=== PATIENT | male | born 1975 | race African-American/Black ===

== ENCOUNTER 2017-01-02 12:31 | Inpatient (IN) | payer OTHER ==
--- NOTE | 2017-01-02 13:09 | PDOC ---
History of Present Illness - History of Present Illness Initial Comments: 01/02/17 13:38 Patient is a 41 year old male with no significant medical hx who is presenting to the ED by Dr. Ayala for rule out appendicitis. The patient has been complaining of crampy RLQ pain for the past week. His pain is intermittent, non- radiating, and rated 2/10 in severity by the patient. He notes that his pain worsens when he gets up and bends over. The patient also endorses several episodes of diarrhea per day for the past three days. Denies fever, chills, nausea, vomiting, chest pain, diaphoresis, shortness of breath, dysuria or any other symptoms. Denies past surgeries, alcohol use, tobacco use, drug use, allergies, or any past medical hx. <Luz Capellan - Last Filed: 01/02/17 18:20> - General History Source: Patient Exam Limitations: No Limitations <Alejandra Pandey - Last Filed: 01/02/17 19:06> - General Chief Complaint: Pain, Acute Stated Complaint: ABD PAIN (REFERRED) Time Seen by Provider: 01/02/17 13:08 Past History <Luz Capellan - Last Filed: 01/02/17 18:20> - Past Medical History Other medical history: PATIENT DENIES MEDICAL HX - Psycho/Social/Smoking Cessation Hx Suicidal Ideation: No Smoking History: Former smoker Have you smoked in the past 12 months: No Information on smoking cessation initiated: No Hx Alcohol Use: No Drug/Substance Use Hx: No <Alejandra Pandey - Last Filed: 01/02/17 19:06> - Past Medical History Allergies/Adverse Reactions: Allergies Allergy/AdvReac Type Severity Reaction Status Date / Time No Known Allergies Allergy Verified 01/02/17 12:37 Home Medications: Ambulatory Orders NK [No Known Home Medication] 01/02/17 Review of Systems - Review of Systems Comments:: 01/02/17 13:49 GENERAL/CONSTITUTIONAL: No: fever, chills, weakness, loss of appetite. HEAD, EYES, EARS, NOSE AND THROAT: No: change in vision, ear pain, discharge, sore throat, throat swelling. CARDIOVASCULAR: No: chest pain, lightheadedness, palpitations, syncope RESPIRATORY: No: cough, shortness of breath, wheezing, hemoptysis, stridor. GASTROINTESTINAL: Yes: RLQ pain, diarrhea. No: nausea, vomiting, abdominal cramping, rectal bleeding, constipation. GENITOURINARY: No: dysuria, hematuria, frequency, urgency, flank pain. MUSCULOSKELET AL: No: back pain, neck pain, joint pain, muscle swelling or pain SKIN AND BREASTS: No: lesions, pallor, rash or easy bruising. NEUROLOGIC: No: headache, vertigo, paresthesias, weakness ENDOCRINE: No: unexplained weight gain or loss HEMATOLOGIC/LYMPHATIC: No: anemia, easy bleeding, swelling nodes <Luz Capellan - Last Filed: 01/02/17 18:20> *Physical Exam - Vital Signs Last Vital Signs Temp Pulse Resp BP Pulse Ox 98.2 F 100 H 16 169/104 98 01/02/17 12:34 01/02/17 12:34 01/02/17 12:34 01/02/17 12:34 01/02/17 12:34 - Physical Exam Comments: 01/02/17 13:50 GENERAL: The patient is in no acute distress. HEAD: Normal with no signs of trauma. EYES: PERRLA, EOMI, sclera anicteric, conjunctiva clear. ENT: Ears normal, nares patent, oropharynx clear without exudates. Moist mucous membranes. NECK: Normal range of motion, supple without lymphadenopathy, JVD, or masses. LUNGS: Breath sounds equal, clear to auscultation bilaterally. No wheezes, and no crackles. HEART: Tachycardic with regular rhythm, normal S1 and S2 without murmur, rub or gallop. ABDOMEN: Soft, RLQ tenderness with guarding, normoactive bowel sounds. EXTREMITIES: Normal range of motion, no edema. No clubbing or cyanosis. No erythema, or tenderness. NEUROLOGICAL: Cranial nerves II through XII grossly intact. Normal speech. No focal neurological deficits. MUSCULOSKELETAL: Back non-tender to palpation, no CVA tenderness SKIN: Warm, Dry, normal turgor, no rashes or lesions noted. <Luz Capellan - Last Filed: 01/02/17 18:20> - Vital Signs Last Vital Signs Temp Pulse Resp BP Pulse Ox 98.2 F 100 H 16 169/104 98 01/02/17 12:34 01/02/17 12:34 01/02/17 12:34 01/02/17 12:34 01/02/17 12:34 <Alejandra Pandey - Last Filed: 01/02/17 19:06> Heart Score/ECG Review #1 ECG reviewed & interpreted by me at: 19:04 01/02/17 19:04 Twelve-lead EKG was performed and reviewed by me. There is normal sinus rhythm with a normal rate of 98bpm. The axis is normal. The intervals are normal - pr: 152ms, QRS:94ms, QTc:472ms. There are no ST elevations. t wave flattening I, aVL, v2, v5, v6 <Alejandra Pandey - Last Filed: 01/02/17 19:06> ED Treatment Course - LABORATORY CBC & Chemistry Diagram: 01/02/17 13:43 01/02/17 13:43 - RADIOLOGY Radiograph Interpretation: 01/02/17 18:20 Abdomen/Pelvis CT Impression: A thick-walled tubular shaped structure is seen within the right lower quadrant suggestive of an inflamed appendix/acute appendicitis. The soft tissue structures in that region are distorted due to acute inflammation, within the expected region of the appendiceal tip a 2 cm hypodense focus is seen which could represent a periappendiceal abscess versus representing fluid distention of the appendiceal tip itself. There is associated concentric wall edema involving the cecum and terminal ileum with resultant luminal narrowing and mild proximal small bowel obstruction. Associated right lower quadrant mesenteric edema is also noted. The right kidney demonstrates equivocal slightly diminished parenchymal contrast enhancement diffusely which could represent reactive inflammation secondary to the previously described adjacent right lower quadrant inflammation and less likely due to concomitant acute pyelonephritis. Clinical/ laboratory correlation is suggested. There is associated mild inflammatory thickening of the right anterior and posterior pararenal fascia. Mildly prominent retroperitoneal and central mesenteric lymph nodes are seen which may be reactive, and probably less likely pathologic. Correlation with 3 month follow-up CT is suggested to document stability/resolution. There is minimal splenomegaly (13 cm length). Several small calcified splenig granulomas are noted. Reported By: Kyler East MD <Luz Capellan - Last Filed: 01/02/17 18:20> - LABORATORY CBC & Chemistry Diagram: 01/02/17 13:43 01/02/17 13:43 <Alejandra Pandey - Last Filed: 01/02/17 19:06> Medical Decision Making - Medical Decision Making 01/02/17 13:09 A portion of this note was documented by scribe services under my direction. I have reviewed the details of the note, within reason, and agree with the documentation with the following case summary and management plan written by me. Nursing documentation reviewed and incorporated into medical decision making 01/02/17 15:01 This pt is a 41 yo M presenting to the ER with a complaint of abdominal pain for the past week Pain is intermittent located in the RLQ Pain is described as cramping Worse with Bending over, putting on his pants/belt No fevers or chills Pt tolerating po, decreased po intake (+) diarrhea - loose brown stools up to 3 times per day Pt seen by Dr Ayala who sent pt in for CT r/o Appy Will do labs Will do CT abd and pelvis Re assess 01/02/17 15:19 Laboratory Tests 01/02/17 01/02/17 13:43 13:43 WBC 10.9 H Hgb 12.8 Hct 38.4 Plt Count 281 Neutrophils % 75.6 Lymphocytes % 13.7 Sodium 140 Potassium 3.5 Chloride 100 Carbon Dioxide 31 BUN 12 Creatinine 1.1 Random Glucose 113 H Total Amylase 78 Lipase 105 01/02/17 17:59 CT demonstrates: thick walled tubular structure in the RLQ suggestive of inflamed appendix Soft tissue inflammation possible periapendiceal abscess 01/02/17 18:[address] La He agrees with Sissy Clinical impression: Appendicitis with perforation <Alejandra Padney - Last Filed: 01/02/17 19:06> *DC/Admit/Observation/Transfer - Attestations Scribe Attestion: 01/02/17 13:52 Documentation prepared by Luz Capellan, acting as center medical director for Alejandra Pandey MD. <Luz Capellan - Last Filed: 01/02/17 18:20> - Discharge Dispostion Admit: Yes <Alejandra Pandey - Last Filed: 01/02/17 19:06> Diagnosis at time of Disposition: Appendicitis with perforation - Discharge Dispostion Condition at time of disposition: Stable - Referrals
[2017-01-02] MEDS: SODIUM CHLORIDE 1,000 ML IV SCH (13:41)
[2017-01-02 14:07] LABS: BASOPHIL 0.4 % (0-2.0); EOSINOPHIL 1.7 % (0-4.5); MCH 28.2 pg (25.7-33.7); MCHC 33.3 g/dl (32.0-35.9); MEAN CELL VOLUME 84.7 fl (80-96); NEUTROPHILS 75.6 % (42.8-82.8); PLATELET COUNT 281 K/MM3 (134-434); RDW 14.3 % (11.9-15.9); WHITE BLOOD COUNT 10.9 K/mm3 (4.0-10.0)
[2017-01-02 14:34] LABS: AMYLASE 78 U/L (25-115); ANION GAP 9 (8-16); CALCIUM 9.2 mg/dL (8.5-10.1); CO2 31 mmol/L (21-32); COCKROFT - GAULT 124.7; CREATININE 1.1 mg/dL (0.7-1.3); GLUCOSE,RANDOM 113 mg/dL (74-106); SGOT/AST 20 U/L (15-37); SGPT/ALT 34 U/L (12-78)
[2017-01-02 14:35] LABS: ALK PHOS 75 U/L (45-117); BILIRUBIN,TOTAL 1.1 mg/dL (0.2-1.0); TOT PROT 8.4 g/dl (6.4-8.2)
[2017-01-02] MEDS ORDERED: PIPERACILLIN/TAZOB 3.375 GM/50 ML PRE-DOCKED IVPB ONE (17:58)
[2017-01-02] MEDS ORDERED: PIPERACILLIN/TAZOB 3.375 GM 50 ML IVPB ONE (18:07)
--- NOTE | 2017-01-02 19:29 | CONSULT ---
Consult Consult Specialty:: General Surgery Referred by:: Dr. Ayala Reason for Consultation:: Acute appendicitis with abscess/mass, phlegmon. - History of Present Illness Chief Complaint: Abdominal pain in right lower quadrant of abdomen x 1 week, with diarrhoea. - History Source History Provided By: Patient Limitations to Obtaining History: No Limitations - Alcohol/Substance Use Hx Alcohol Use: No - Smoking History Smoking history: Former smoker Have you smoked in the past 12 months: No Home Medications - Allergies Allergies/Adverse Reactions: Allergies Allergy/AdvReac Type Severity Reaction Status Date / Time No Known Allergies Allergy Verified 01/02/17 12:37 - Home Medications Home Medications: Ambulatory Orders NK [No Known Home Medication] 01/02/17 Review of Systems - Review of Systems Constitutional: reports: No Symptoms Eyes: reports: No Symptoms HENT: reports: No Symptoms Neck: reports: No Symptoms Cardiovascular: reports: No Symptoms Respiratory: reports: No Symptoms Gastrointestinal: reports: Abdominal Pain (Abdominal pain in right lower quadrant for one week. denies any nausea, or vomiting. has been having diarrhea. He went to 's office today and was sent to the ER.), Diarrhea Genitourinary: reports: No Symptoms Breasts: reports: No Symptoms Reported Musculoskeletal: reports: No Symptoms Integumentary: reports: No Symptoms Physical Exam Vital Signs: Vital Signs Temperature 99 F 01/02/17 17:41 Pulse Rate 101 H 01/02/17 17:41 Respiratory Rate 18 01/02/17 17:41 Blood Pressure 186/114 01/02/17 17:41 O2 Sat by Pulse Oximetry (%) 98 01/02/17 17:41 Gastrointestinal: Yes: Palpable Mass, Tenderness (Tender mass is felt in the right lower quadrant with voluntary guarding.) Imaging - Results Cat Scan: Report Reviewed, Image Reviewed Problem List - Problems (1) Acute appendicitis with appendiceal abscess Code(s): K35.3 - ACUTE APPENDICITIS WITH LOCALIZED PERITONITIS (2) Obesity Code(s): E66.9 - OBESITY, UNSPECIFIED Qualifiers: Obesity type: due to excess calories (3) Diarrhea Code(s): R19.7 - DIARRHEA, UNSPECIFIED Qualifiers: Diarrhea type: unspecified type Qualified Code(s): R19.7 - Diarrhea , unspecified Assessment/Plan Patient has had symptoms for one week, and has a palpable mass. Will treat him with antibiotics , and consider elective appendectomy if needed later. Surgery at this juncture may result in more complications , and may result in resections of the bowel. Patient has been explained. Treat with antibiotics with close follow up. Infectious disease consult has been requested by Dr. Ayala. IV fluids,. NPO., antibiotics.
[2017-01-02] MEDS ORDERED: HYDROmorphone HCL CARPU-JECT 1 MG/1 ML DISP.SYRIN IVPB PRN (19:43)
[2017-01-02] MEDS: amLODIPine BESYLATE 5 MG TABLET (FP) PO SCH (22:26)
[2017-01-02 23:29] VITALS: BMI 29.6
[2017-01-03] MEDS ORDERED: PIPERACILLIN/TAZOB 3.375 GM 50 ML IVPB SCH (02:00)
[2017-01-03] MEDS: PIPERACILLIN/TAZOB 3.375 GM 50 ML IVPB SCH ×3 (03:00→17:45)
[2017-01-03] MEDS ORDERED: PT OWN MED DRAWER 7, Y5N ONE ×2 (06:13→20:24)
--- NOTE | 2017-01-03 09:08 | PN ---
Progress Note, Physician History of Present Illness: Patient feels better. Less abdominal pain, No nausea, no vomiting. Abdomen is soft, no guarding, less tender in right lower quadrant. Soft palpable mass in right lower quadrant. WBC 76368. T max 99.2 Plan : Continue IV antibiotics. NPO today. Patient is explained of the presence of a plegmon / abscess in right lower quadrant. Will need follow up CT scan , to seen the response to treatment before discharge. consider elective appendectomy later. - Current Medication List Current Medications: Active Medications Amlodipine Besylate (Norvasc -) 5 mg PO DAILY [facility] Last Admin: 01/02/17 22:26 Dose: 5 mg Hydromorphone HCl (Dilaudid Injection -) 1 mg IVPB Q4H PRN PRN Reason: PAIN Sodium Chloride (Normal Saline -) 1,000 mls @ 125 mls/hr IV ASDIR [facility] Last Admin: 01/02/17 13:41 Dose: 125 mls/hr Piperacillin Sod/Tazobactam Sod (Zosyn 3.375gm Ivpb (Pre-Docked)) 50 mls @ 100 mls/hr IVPB Q8H-IV LAN PRN Reason: Protocol Last Admin: 01/03/17 03:00 Dose: 100 mls/hr - Objective Vital Signs: Vital Signs Temperature 99.6 F 01/03/17 06:15 Pulse Rate 91 H 01/03/17 06:15 Respiratory Rate 20 01/03/17 06:15 Blood Pressure 153/85 01/03/17 06:15 O2 Sat by Pulse Oximetry (%) 99 01/02/17 23:57 Problem List - Problems (1) Acute appendicitis with appendiceal abscess Code(s): K35.3 - ACUTE APPENDICITIS WITH LOCALIZED PERITONITIS (2) Obesity Code(s): E66.9 - OBESITY, UNSPECIFIED Qualifiers: Obesity type: due to excess calories (3) Diarrhea Code(s): R19.7 - DIARRHEA, UNSPECIFIED Qualifiers: Diarrhea type: unspecified type Qualified Code(s): R19.7 - Diarrhea , unspecified Assessment/Plan ess abdominal pain, No nausea, no vomiting. Abdomen is soft, no guarding, less tender in right lower quadrant. Soft palpable mass in right lower quadrant. WBC 83170. T max 99.2 Plan : Continue IV antibiotics. NPO today. Patient is explained of the presence of a plegmon / abscess in right lower quadrant. Will need follow up CT scan , to seen the response to treatment before discharge. consider elective appendectomy later.
[2017-01-03 09:12] LABS: MCH 28.7 pg (25.7-33.7); MCHC 34.1 g/dl (32.0-35.9); MEAN CELL VOLUME 84.2 fl (80-96); MEAN PLT VOLUME 9.5 fl (7.5-11.1); PLATELET COUNT 260 K/MM3 (134-434); RDW 13.9 % (11.9-15.9); WHITE BLOOD COUNT 8.1 K/mm3 (4.0-10.0)
--- NOTE | 2017-01-03 09:25 | EKG ---
Test Reason : Blood Pressure : / mmHG Vent. Rate : 098 BPM Atrial Rate : 098 BPM P-R Int : 152 ms QRS Dur : 094 ms QT Int : 370 ms P-R-T Axes : 023 -09 036 degrees QTc Int : 472 ms NORMAL SINUS RHYTHM POSSIBLE LEFT ATRIAL ENLARGEMENT NONSPECIFIC INTRAVENTRICULAR CONDUCTION DEFECT WHEN COMPARED WITH ECG OF 30-JAN-2011 06:47, NON-SPECIFIC CHANGE IN ST SEGMENT IN ANTERIOR LEADS Confirmed by RACHELE MOCTEZUMA, BECKY ([id number]) on 01/03/2017 9:25:18 AM Referred By: Confirmed By:BECKY JEFFREY MD
[2017-01-03 09:36] LABS: ALBUMIN 2.5 g/dl (3.4-5.0); ANION GAP 8 (8-16); BILIRUBIN,TOTAL 0.8 mg/dL (0.2-1.0); CALCIUM 8.5 mg/dL (8.5-10.1); CO2 27 mmol/L (21-32); COCKROFT - GAULT 147.32; CREATININE 0.9 mg/dL (0.7-1.3); GLUCOSE,RANDOM 84 mg/dL (74-106); SGOT/AST 17 U/L (15-37); SGPT/ALT 26 U/L (12-78); TOT PROT 7.2 g/dl (6.4-8.2)
[2017-01-03 09:37] LABS: ALK PHOS 63 U/L (45-117)
[2017-01-03] MEDS: amLODIPine BESYLATE 5 MG TABLET (FP) PO SCH (09:42)
[2017-01-03] MEDS ORDERED: PIPERACILLIN/TAZOB 3.375 GM/50 ML PRE-DOCKED IVPB SCH (10:00)
--- NOTE | 2017-01-03 11:13 | CONSULT ---
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 patient says he is feeling better - History Source History Provided By: Patient Limitations to Obtaining History: No Limitations - Alcohol/Substance Use Hx Alcohol Use: No - Smoking History Smoking history: Never smoked Have you smoked in the past 12 months: No Home Medications - Allergies Allergies/Adverse Reactions: Allergies Allergy/AdvReac Type Severity Reaction Status Date / Time No Known Allergies Allergy Verified 01/02/17 12:37 - Home Medications Home Medications: Ambulatory Orders NK [No Known Home Medication] 01/02/17 Review of Systems - Review of Systems Constitutional: reports: No Symptoms Eyes: reports: No Symptoms HENT: reports: No Symptoms Neck: reports: No Symptoms Cardiovascular: reports: No Symptoms Respiratory: reports: No Symptoms Gastrointestinal: reports: Abdominal Pain, Other Genitourinary: reports: No Symptoms Musculoskeletal: reports: No Symptoms Integumentary: reports: No Symptoms Neurological: reports: No Symptoms Endocrine: reports: No Symptoms Hematology/Lymphatic: reports: No Symptoms Psychiatric: reports: No Symptoms Physical Exam Vital Signs: Vital Signs Temperature 99.6 F 01/03/17 06:15 Pulse Rate 91 H 01/03/17 06:15 Respiratory Rate 20 01/03/17 06:15 Blood Pressure 153/85 01/03/17 06:15 O2 Sat by Pulse Oximetry (%) 99 01/02/17 23:57 Constitutional: Yes: Well Nourished, Mild Distress, Obese Eyes: Yes: Conjunctiva Clear HENT: Yes: Atraumatic Neck: Yes: Supple, Trachea Midline Cardiovascular: Yes: Regular Rate and Rhythm Respiratory: Yes: Regular, CTA Bilaterally Gastrointestinal: Yes: Normal Bowel Sounds, Soft, Palpable Mass, Other Musculoskeletal: Yes: WNL Extremities: Yes: WNL Neurological: Yes: Alert, Oriented Psychiatric: Yes: Alert, Oriented Labs: CBC, BMP 01/03/17 08:10 01/03/17 08:10 Imaging - Results Chest X-ray: Report Reviewed, Image Reviewed Cat Scan: Report Reviewed, Image Reviewed Assessment/Plan Problem List - Problems (1) Acute appendicitis with appendiceal abscess Code(s): K35.3 - ACUTE APPENDICITIS WITH LOCALIZED PERITONITIS (2) Obesity Code(s): E66.9 - OBESITY, UNSPECIFIED Qualifiers: Obesity type: due to excess calories (3) Diarrhea Code(s): R19.7 - DIARRHEA, UNSPECIFIED Qualifiers: Diarrhea type: unspecified type Qualified Code(s): R19.7 - Diarrhea , unspecified d/w surgery plan noted from them plan will start on abx continue to follow rest as per primary/surgery
[2017-01-03] MEDS: SODIUM CHLORIDE 1,000 ML IV SCH ×2 (12:22→22:00)
--- NOTE | 2017-01-03 15:08 | HP ---
[id number] Chief Complaint: Rt LQ pain History of Present Illness: 41 yrs old healthy man no significant PMH works with [employer] present to PMD office with 7 days H/O RT LQ abd pain with nausea, fever and loose stool, also c /o poor PO intake, P exam was consistent with RT LQ lump CT abdomen shows appendicitis with abscess, patient, admitted for IV abx and further management, today patient feels improved C/o Less pain last BM was am , semisolid still c/ o nausea. History Source: Patient Limitations to Obtaining History: No Limitations - Past Medical History Cardiovascular: Yes: HTN - Past Surgical History Past Surgical History: Yes: None - Smoking History Smoking history: Former smoker Have you smoked in the past 12 months: No - Alcohol/Substance Use Hx Alcohol Use: No - Social History Usual Living Arrangement: Yes: With Spouse ADL: Independent Occupation: [email or web address] Employee History of Recent Travel: No Home Medications - Allergies Allergies/Adverse Reactions: Allergies Allergy/AdvReac Type Severity Reaction Status Date / Time No Known Allergies Allergy Verified 01/02/17 12:37 - Home Medications Home Medications: Ambulatory Orders NK [No Known Home Medication] 01/02/17 Family Disease History - Family Disease History Family Disease History: Diabetes: Grandparent, Father, Mother, Heart Disease: Grandparent, Father, Mother Review of Systems - Review of Systems Constitutional: reports: Chills, Fever, Loss of Appetite Eyes: reports: No Symptoms HENT: reports: No Symptoms Neck: reports: No Symptoms Cardiovascular: reports: No Symptoms Respiratory: reports: No Symptoms Gastrointestinal: reports: Abdominal Pain, Bloating, Diarrhea, Nausea Genitourinary: reports: No Symptoms Musculoskeletal: reports: No Symptoms Integumentary: reports: No Symptoms Neurological: reports: No Symptoms Endocrine: reports: No Symptoms Hematology/Lymphatic: reports: No Symptoms Pain Intensity: 4 Physical Examination Vital Signs: Vital Signs Temperature 98.8 F 01/03/17 14:00 Pulse Rate 95 H 01/03/17 14:00 Respiratory Rate 20 01/03/17 14:00 Blood Pressure 160/92 01/03/17 14:00 O2 Sat by Pulse Oximetry (%) 95 01/03/17 09:00 Constitutional: Yes: Well Nourished, No Distress, Calm Eyes: Yes: WNL, Conjunctiva Clear, EOM Intact HENT: Yes: Atraumatic, Normocephalic Neck: Yes: WNL, Supple, Trachea Midline Cardiovascular: Yes: WNL, Regular Rate and Rhythm Respiratory: Yes: WNL, Regular, CTA Bilaterally Gastrointestinal: Yes: Normal Bowel Sounds, Other (Rt LQ tenderness and plapable mass) ...Rectal Exam: Yes: Deferred Renal/: Yes: WNL Extremities: Yes: WNL Edema: No Peripheral Pulses WNL: Yes Peripheral Pulses: Left Radial: 2+, Right Radial: 2+, Left Doralis Pedis: 2+, Right Dorsalis Pedis: 2+, Left Femoral: 2+, Right Femoral: 2+ ...Motor Strength: WNL Psychiatric: Yes: WNL Labs: CBC, BMP 01/03/17 08:10 01/03/17 08:10 Imaging - Results X-ray: Image Reviewed (Normal) Cat Scan: Image Reviewed (Appendicitis with 2 cm abscess) EKG: Image Reviewed (HR 98 NSr no acuteST T changes) Problem List - Problems (1) Acute appendicitis with appendiceal abscess Assessment/Plan: 41 yrs old male no significant PMH Present with Rt LQ pain elevated TWBC , CT finding consistent with appendicitis evaluated by surgery consult and ID Plan; NPO except Meds IV Zosyn as per ID Pain control IV hydration Code(s): K35.3 - ACUTE APPENDICITIS WITH LOCALIZED PERITONITIS (2) Diarrhea Assessment/Plan: Due to appendicitis Code(s): R19.7 - DIARRHEA, UNSPECIFIED Qualifiers: Diarrhea type: unspecified type Qualified Code(s): R19.7 - Diarrhea , unspecified (3) Obesity Assessment/Plan: Nutrition consult as out patient Code(s): E66.9 - OBESITY, UNSPECIFIED Qualifiers: Obesity type: due to excess calories (4) HTN (hypertension) Assessment/Plan: Patient has HTN Cont amlodipine % mg Daily optimize as Indicated. Code(s): I10 - ESSENTIAL (PRIMARY) HYPERTENSION Qualifiers: Qualified Code(s): I10 - Essential (primary) hypertension Assessment/Plan Active Medications Generic Name Dose Route Start Last Admin Trade Name Freq PRN Reason Stop Dose Admin Amlodipine Besylate 5 mg 01/02/17 21:15 01/03/17 09:42 Norvasc - PO 5 mg DAILY [facility] Administration Hydromorphone HCl 1 mg 01/02/17 19:43 Dilaudid Injection - IVPB Q4H PRN PAIN Sodium Chloride 1,000 mls @ 125 mls/hr 01/02/17 13:15 01/03/17 12:22 Normal Saline - IV 125 mls/hr ASDIR [facility] Administration Piperacillin Sod/Tazobactam Sod 50 mls @ 100 mls/hr 01/03/17 02:00 01/03/17 09: 42 Zosyn 3.375gm Ivpb (Pre-Docked) IVPB 100 mls/hr Q8H-IV [facility] Administration Protocol
[2017-01-03] MEDS ORDERED: ONDANSETRON 4 MG/2 ML VIAL IVPB PRN (15:16)
[2017-01-04] MEDS: PIPERACILLIN/TAZOB 3.375 GM 50 ML IVPB SCH ×3 (02:35→17:40)
[2017-01-04 09:11] LABS: BASOPHIL 0.4 % (0-2.0); EOSINOPHIL 6.5 % (0-4.5); MCH 28.4 pg (25.7-33.7); MCHC 33.7 g/dl (32.0-35.9); MEAN CELL VOLUME 84.2 fl (80-96); MEAN PLT VOLUME 9.5 fl (7.5-11.1); NEUTROPHILS 61.9 % (42.8-82.8); PLATELET COUNT 261 K/MM3 (134-434); RDW 14.1 % (11.9-15.9); WHITE BLOOD COUNT 7.7 K/mm3 (4.0-10.0)
[2017-01-04 09:33] LABS: ALBUMIN 2.5 g/dl (3.4-5.0); ANION GAP 12 (8-16); CALCIUM 8.5 mg/dL (8.5-10.1); CO2 25 mmol/L (21-32); GLUCOSE,RANDOM 72 mg/dL (74-106)
[2017-01-04 09:38] LABS: ALK PHOS 61 U/L (45-117); BILIRUBIN,TOTAL 0.8 mg/dL (0.2-1.0); COCKROFT - GAULT 165.74; CREATININE 0.8 mg/dL (0.7-1.3); SGOT/AST 16 U/L (15-37); SGPT/ALT 25 U/L (12-78); TOT PROT 7.2 g/dl (6.4-8.2)
[2017-01-04] MEDS ORDERED: PT OWN MED DRAWER 7, Y5N ONE (10:46)
[2017-01-04] MEDS: amLODIPine BESYLATE 5 MG TABLET (FP) PO SCH (10:49)
--- NOTE | 2017-01-04 11:42 | PN ---
[id number] resolved able to pass flatus TWBC trended normal, - Current Medication List Current Medications: Active Medications Amlodipine Besylate (Norvasc -) 5 mg PO DAILY [facility] Last Admin: 01/04/17 10:49 Dose: 5 mg Hydromorphone HCl (Dilaudid Injection -) 1 mg IVPB Q4H PRN PRN Reason: PAIN Sodium Chloride (Normal Saline -) 1,000 mls @ 125 mls/hr IV ASDIR [facility] Last Admin: 01/03/17 22:00 Dose: 125 mls/hr Piperacillin Sod/Tazobactam Sod (Zosyn 3.375gm Ivpb (Pre-Docked)) 50 mls @ 100 mls/hr IVPB Q8H-IV [facility] PRN Reason: Protocol Last Admin: 01/04/17 10:49 Dose: 100 mls/hr Ondansetron HCl (Zofran Injection) 4 mg IVPB Q6H PRN PRN Reason: NAUSEA - Objective Vital Signs: Vital Signs Temperature 98.4 F 01/04/17 06:00 Pulse Rate 84 01/04/17 06:00 Respiratory Rate 20 01/04/17 06:00 Blood Pressure 157/84 01/04/17 06:00 O2 Sat by Pulse Oximetry (%) 95 01/03/17 21:00 Constitutional: Yes: Well Nourished, No Distress, Calm Eyes: Yes: WNL HENT: Yes: WNL, Atraumatic, Normocephalic Neck: Yes: Supple Cardiovascular: Yes: Regular Rate and Rhythm Respiratory: Yes: Regular, CTA Bilaterally Gastrointestinal: Yes: WNL, Normal Bowel Sounds, Soft, Abdomen, Obese, Other ( Mild Rt LQ pain) ...Rectal Exam: Yes: Deferred Genitourinary: Yes: WNL Extremities: Yes: WNL. No: Calf Tenderness, Deformity Edema: No Peripheral Pulses WNL: Yes Peripheral Pulses: Left Radial: 2+, Right Radial: 2+, Left Doralis Pedis: 2+, Right Dorsalis Pedis: 2+, Left Femoral: 2+, Right Femoral: 2+ Integumentary: Yes: WNL Neurological: Yes: WNL, Alert, Oriented ...Motor Strength: WNL Psychiatric: Yes: WNL, Alert, Oriented Labs: CBC, BMP 01/04/17 07:30 01/04/17 07:30 - ....Imaging Chest X-ray: Report Reviewed, Other (Normal) Cat Scan: Report Reviewed, Other (Appendicitis ith perappendicular abscess) Problem List - Problems (1) Acute appendicitis with appendiceal abscess Assessment/Plan: Present with Rt LQ pain elevated TWBC , Melo finding consistent with appendicitis evaluated by surgery consult and ID Plan; NPO except Meds IV Zosyn as per ID Pain control IV hydration switch to D5 / NS 10 Kcl Code(s): K35.3 - ACUTE APPENDICITIS WITH LOCALIZED PERITONITIS (2) Diarrhea Assessment/Plan: Due to appendicitis Code(s): R19.7 - DIARRHEA, UNSPECIFIED Qualifiers: Diarrhea type: unspecified type Qualified Code(s): R19.7 - Diarrhea , unspecified (3) Obesity Assessment/Plan: Nutrition consult Code(s): E66.9 - OBESITY, UNSPECIFIED Qualifiers: Obesity type: due to excess calories (4) HTN (hypertension) Assessment/Plan: Patient has HTN Cont amlodipine % mg Daily optimize as Indicated. Code(s): I10 - ESSENTIAL (PRIMARY) HYPERTENSION Qualifiers: Qualified Code(s): I10 - Essential (primary) hypertension Assessment/Plan Active Medications Generic Name Dose Route Start Last Admin Trade Name Freq PRN Reason Stop Dose Admin Amlodipine Besylate 5 mg 01/02/17 21:15 01/03/17 09:42 Norvasc - PO 5 mg DAILY [facility] Administration Hydromorphone HCl 1 mg 01/02/17 19:43 Dilaudid Injection - IVPB Q4H PRN PAIN Sodium Chloride 1,000 mls @ 125 mls/hr 01/02/17 13:15 01/03/17 12:22 Normal Saline - IV 125 mls/hr ASDIR [facility] Administration Piperacillin Sod/Tazobactam Sod 50 mls @ 100 mls/hr 01/03/17 02:00 01/03/17 09: 42 Zosyn 3.375gm Ivpb (Pre-Docked) IVPB 100 mls/hr Q8H-IV LAN Administration Protocol
[2017-01-04] MEDS ORDERED: POTASSIUM CHLORIDE 10 MEQ in DEXTROSE 5%-0.45% SALINE 1,000 ML IVPB SCH (13:00)
--- NOTE | 2017-01-04 13:36 | PN ---
Progress Note, Physician History of Present Illness: patient stable no issues still with abd pain - Current Medication List Current Medications: Active Medications Amlodipine Besylate (Norvasc -) 5 mg PO DAILY [facility] Last Admin: 01/04/17 10:49 Dose: 5 mg Hydromorphone HCl (Dilaudid Injection -) 1 mg IVPB Q4H PRN PRN Reason: PAIN Piperacillin Sod/Tazobactam Sod (Zosyn 3.375gm Ivpb (Pre-Docked)) 50 mls @ 100 mls/hr IVPB Q8H-IV LAN PRN Reason: Protocol Last Admin: 01/04/17 10:49 Dose: 100 mls/hr Potassium Chloride 10 meq/ (Dextrose/Sodium Chloride) 1,005 mls @ 100 mls/hr IVPB Q10H [facility] Ondansetron HCl (Zofran Injection) 4 mg IVPB Q6H PRN PRN Reason: NAUSEA - Objective Vital Signs: Vital Signs Temperature 98.7 F 01/04/17 09:00 Pulse Rate 97 H 01/04/17 09:00 Respiratory Rate 18 01/04/17 09:00 Blood Pressure 161/94 01/04/17 09:00 O2 Sat by Pulse Oximetry (%) 95 01/03/17 21:00 Constitutional: Yes: Calm, Mild Distress Cardiovascular: Yes: Regular Rate and Rhythm Respiratory: Yes: Regular, CTA Bilaterally Gastrointestinal: Yes: Normal Bowel Sounds, Soft Musculoskeletal: Yes: WNL Extremities: Yes: WNL Neurological: Yes: Alert, Oriented Psychiatric: Yes: Alert, Oriented Labs: CBC, BMP 01/04/17 07:30 01/04/17 07:30 Assessment/Plan Problem List - Problems (1) Acute appendicitis with appendiceal abscess Code(s): K35.3 - ACUTE APPENDICITIS WITH LOCALIZED PERITONITIS (2) Obesity Code(s): E66.9 - OBESITY, UNSPECIFIED Qualifiers: Obesity type: due to excess calories (3) Diarrhea Code(s): R19.7 - DIARRHEA, UNSPECIFIED Qualifiers: Diarrhea type: unspecified type Qualified Code(s): R19.7 - Diarrhea , unspecified d/w surgery plan noted from them plan continue abx continue to monitor
--- NOTE | 2017-01-04 14:32 | PN ---
Progress Note, Physician - Current Medication List Current Medications: Active Medications Amlodipine Besylate (Norvasc -) 5 mg PO DAILY [facility] Last Admin: 01/04/17 10:49 Dose: 5 mg Hydromorphone HCl (Dilaudid Injection -) 1 mg IVPB Q4H PRN PRN Reason: PAIN Piperacillin Sod/Tazobactam Sod (Zosyn 3.375gm Ivpb (Pre-Docked)) 50 mls @ 100 mls/hr IVPB Q8H-IV LAN PRN Reason: Protocol Last Admin: 01/04/17 10:49 Dose: 100 mls/hr Potassium Chloride 10 meq/ (Dextrose/Sodium Chloride) 1,005 mls @ 100 mls/hr IVPB Q10H [facility] Ondansetron HCl (Zofran Injection) 4 mg IVPB Q6H PRN PRN Reason: NAUSEA - Objective Vital Signs: Vital Signs Temperature 98.7 F 01/04/17 09:00 Pulse Rate 97 H 01/04/17 09:00 Respiratory Rate 18 01/04/17 09:00 Blood Pressure 161/94 01/04/17 09:00 O2 Sat by Pulse Oximetry (%) 95 01/03/17 21:00 Labs: CBC, BMP 01/04/17 07:30 01/04/17 07:30 Problem List - Problems (1) Acute appendicitis with appendiceal abscess Code(s): K35.3 - ACUTE APPENDICITIS WITH LOCALIZED PERITONITIS (2) Obesity Code(s): E66.9 - OBESITY, UNSPECIFIED Qualifiers: Obesity type: due to excess calories (3) Diarrhea Code(s): R19.7 - DIARRHEA, UNSPECIFIED Qualifiers: Diarrhea type: unspecified type Qualified Code(s): R19.7 - Diarrhea , unspecified Assessment/Plan Surgery: Patient is feeling better, denies any abdominal pain. He has had a bowel movement , loose stools. Denies any nausea, or vomiting. Wants to eat. Abdomen is soft, he is not tender in right lower quadrant. He is improving. Will continue antibiotics. Start with sips of water, and liquid diet tomorrow if tolerated. CT scan will be ordered for 01/06/2017. Patient is informed.
[2017-01-04] MEDS: POTASSIUM CHLORIDE 10 MEQ in DEXTROSE 5%-0.45% SALINE 1,000 ML IVPB SCH (15:50)
[2017-01-04] MEDS ORDERED: METOPROLOL TARTRATE 25 MG TABLET (FP) PO ONE (18:30)
[2017-01-04] MEDS: METOPROLOL TARTRATE 25 MG TABLET (FP) PO SCH (21:46)
[2017-01-05] MEDS: POTASSIUM CHLORIDE 10 MEQ in DEXTROSE 5%-0.45% SALINE 1,000 ML IVPB SCH ×4 (01:37→21:58)
[2017-01-05] MEDS: PIPERACILLIN/TAZOB 3.375 GM 50 ML IVPB SCH ×3 (01:37→17:21)
[2017-01-05 08:37] LABS: BASOPHIL 0.3 % (0-2.0); EOSINOPHIL 5.8 % (0-4.5); MCH 27.9 pg (25.7-33.7); MEAN CELL VOLUME 84.6 fl (80-96); MEAN PLT VOLUME 9.1 fl (7.5-11.1); NEUTROPHILS 63.3 % (42.8-82.8); PLATELET COUNT 296 K/MM3 (134-434); RDW 14.2 % (11.9-15.9); WHITE BLOOD COUNT 6.8 K/mm3 (4.0-10.0)
[2017-01-05 09:16] LABS: ALBUMIN 2.5 g/dl (3.4-5.0); ALK PHOS 57 U/L (45-117); ANION GAP 10 (8-16); BILIRUBIN,TOTAL 0.5 mg/dL (0.2-1.0); CALCIUM 8.7 mg/dL (8.5-10.1); CO2 27 mmol/L (21-32); COCKROFT - GAULT 165.74; CREATININE 0.8 mg/dL (0.7-1.3); GLUCOSE,RANDOM 98 mg/dL (74-106); SGOT/AST 17 U/L (15-37); SGPT/ALT 21 U/L (12-78); TOT PROT 7.3 g/dl (6.4-8.2)
[2017-01-05] MEDS: METOPROLOL TARTRATE 25 MG TABLET (FP) PO SCH ×2 (09:46→21:59)
[2017-01-05] MEDS: amLODIPine BESYLATE 5 MG TABLET (FP) PO SCH (09:47)
--- NOTE | 2017-01-05 14:55 | PN ---
Progress Note, Physician History of Present Illness: doing well pain much better tolerated orally - Current Medication List Current Medications: Active Medications Amlodipine Besylate (Norvasc -) 5 mg PO DAILY [facility] Last Admin: 01/05/17 09:47 Dose: 5 mg Hydromorphone HCl (Dilaudid Injection -) 1 mg IVPB Q4H PRN PRN Reason: PAIN Piperacillin Sod/Tazobactam Sod (Zosyn 3.375gm Ivpb (Pre-Docked)) 50 mls @ 100 mls/hr IVPB Q8H-IV [facility] PRN Reason: Protocol Last Admin: 01/05/17 09:47 Dose: 100 mls/hr Potassium Chloride 10 meq/ (Dextrose/Sodium Chloride) 1,005 mls @ 100 mls/hr IVPB Q10H [facility] Last Admin: 01/05/17 12:38 Dose: 100 mls/hr Metoprolol Tartrate (Lopressor -) 12.5 mg PO BID [facility] Last Admin: 01/05/17 09:46 Dose: 12.5 mg Ondansetron HCl (Zofran Injection) 4 mg IVPB Q6H PRN PRN Reason: NAUSEA - Objective Vital Signs: Vital Signs Temperature 98.8 F 01/05/17 14:19 Pulse Rate 82 01/05/17 14:19 Respiratory Rate 17 01/05/17 14:19 Blood Pressure 142/91 01/05/17 14:19 O2 Sat by Pulse Oximetry (%) 97 01/04/17 21:00 Constitutional: Yes: No Distress, Calm, Obese Cardiovascular: Yes: Regular Rate and Rhythm Respiratory: Yes: Regular, CTA Bilaterally Gastrointestinal: Yes: Normal Bowel Sounds, Soft Musculoskeletal: Yes: WNL Extremities: Yes: WNL Neurological: Yes: Alert, Oriented Psychiatric: Yes: Alert, Oriented Labs: CBC, BMP 01/05/17 07:30 01/05/17 07:30 Assessment/Plan Problem List - Problems (1) Acute appendicitis with appendiceal abscess Code(s): K35.3 - ACUTE APPENDICITIS WITH LOCALIZED PERITONITIS (2) Obesity Code(s): E66.9 - OBESITY, UNSPECIFIED Qualifiers: Obesity type: due to excess calories (3) Diarrhea Code(s): R19.7 - DIARRHEA, UNSPECIFIED Qualifiers: Diarrhea type: unspecified type Qualified Code(s): R19.7 - Diarrhea , unspecified d/w surgery plan noted from them plan continue abx continue to monitor repeat imaging
--- NOTE | 2017-01-05 15:25 | PN ---
Progress Note, Physician Chief Complaint: 41 yrs old man admitted with Rt LQ pain with appendicitis and abscess formation , pain resolved able to pass flatus TWBC trended normal,toleting PO - Current Medication List Current Medications: Active Medications Amlodipine Besylate (Norvasc -) 5 mg PO DAILY [facility] Last Admin: 01/05/17 09:47 Dose: 5 mg Hydromorphone HCl (Dilaudid Injection -) 1 mg IVPB Q4H PRN PRN Reason: PAIN Piperacillin Sod/Tazobactam Sod (Zosyn 3.375gm Ivpb (Pre-Docked)) 50 mls @ 100 mls/hr IVPB Q8H-IV [facility] PRN Reason: Protocol Last Admin: 01/05/17 09:47 Dose: 100 mls/hr Potassium Chloride 10 meq/ (Dextrose/Sodium Chloride) 1,005 mls @ 100 mls/hr IVPB Q10H [facility] Last Admin: 01/05/17 12:38 Dose: 100 mls/hr Metoprolol Tartrate (Lopressor -) 12.5 mg PO BID [facility] Last Admin: 01/05/17 09:46 Dose: 12.5 mg Ondansetron HCl (Zofran Injection) 4 mg IVPB Q6H PRN PRN Reason: NAUSEA - Objective Vital Signs: Vital Signs Temperature 98.8 F 01/05/17 14:19 Pulse Rate 82 01/05/17 14:19 Respiratory Rate 17 01/05/17 14:19 Blood Pressure 142/91 01/05/17 14:19 O2 Sat by Pulse Oximetry (%) 97 01/04/17 21:00 Constitutional: Yes: Well Nourished, No Distress Neck: Yes: Supple, Trachea Midline Cardiovascular: Yes: Regular Rate and Rhythm Respiratory: Yes: WNL, Regular, CTA Bilaterally Gastrointestinal: Yes: WNL, Normal Bowel Sounds, Soft Genitourinary: Yes: WNL Musculoskeletal: Yes: WNL Extremities: Yes: WNL Edema: No Peripheral Pulses WNL: Yes Integumentary: Yes: WNL Neurological: Yes: WNL, Alert, Oriented, Unresponsive Psychiatric: Yes: WNL Labs: CBC, BMP 01/05/17 07:30 01/05/17 07:30 Problem List - Problems (1) Acute appendicitis with appendiceal abscess Assessment/Plan: Present with Rt LQ pain elevated TWBC , Melo finding consistent with appendicitis evaluated by surgery consult and ID Plan; Tolerating POs IV Zosyn as per ID Pain control IV hydration switch to D5 /2 NS 10 Kcl Code(s): K35.3 - ACUTE APPENDICITIS WITH LOCALIZED PERITONITIS (2) Diarrhea Assessment/Plan: Due to appendicitis Code(s): R19.7 - DIARRHEA, UNSPECIFIED Qualifiers: Diarrhea type: unspecified type Qualified Code(s): R19.7 - Diarrhea , unspecified (3) Obesity Assessment/Plan: Nutrition consult Code(s): E66.9 - OBESITY, UNSPECIFIED Qualifiers: Obesity type: due to excess calories (4) HTN (hypertension) Assessment/Plan: Cont amlodipine and Metoprolol Code(s): I10 - ESSENTIAL (PRIMARY) HYPERTENSION Qualifiers: Qualified Code(s): I10 - Essential (primary) hypertension Assessment/Plan Active Medications Generic Name Dose Route Start Last Admin Trade Name Freq PRN Reason Stop Dose Admin Amlodipine Besylate 5 mg 01/02/17 21:15 01/03/17 09:42 Norvasc - PO 5 mg DAILY [facility] Administration Hydromorphone HCl 1 mg 01/02/17 19:43 Dilaudid Injection - IVPB Q4H PRN PAIN Sodium Chloride 1,000 mls @ 125 mls/hr 01/02/17 13:15 01/03/17 12:22 Normal Saline - IV 125 mls/hr ASDIR [facility] Administration Piperacillin Sod/Tazobactam Sod 50 mls @ 100 mls/hr 01/03/17 02:00 01/03/17 09: 42 Zosyn 3.375gm Ivpb (Pre-Docked) IVPB 100 mls/hr Q8H-IV [facility] Administration Protocol
--- NOTE | 2017-01-05 16:45 | PN ---
Progress Note, Physician - Current Medication List Current Medications: Active Medications Amlodipine Besylate (Norvasc -) 5 mg PO DAILY [facility] Last Admin: 01/05/17 09:47 Dose: 5 mg Hydromorphone HCl (Dilaudid Injection -) 1 mg IVPB Q4H PRN PRN Reason: PAIN Piperacillin Sod/Tazobactam Sod (Zosyn 3.375gm Ivpb (Pre-Docked)) 50 mls @ 100 mls/hr IVPB Q8H-IV LAN PRN Reason: Protocol Last Admin: 01/05/17 09:47 Dose: 100 mls/hr Potassium Chloride 10 meq/ (Dextrose/Sodium Chloride) 1,005 mls @ 100 mls/hr IVPB Q10H [facility] Last Admin: 01/05/17 12:38 Dose: 100 mls/hr Metoprolol Tartrate (Lopressor -) 12.5 mg PO BID [facility] Last Admin: 01/05/17 09:46 Dose: 12.5 mg Ondansetron HCl (Zofran Injection) 4 mg IVPB Q6H PRN PRN Reason: NAUSEA - Objective Vital Signs: Vital Signs Temperature 98.8 F 01/05/17 14:19 Pulse Rate 82 01/05/17 14:19 Respiratory Rate 17 01/05/17 14:19 Blood Pressure 142/91 01/05/17 14:19 O2 Sat by Pulse Oximetry (%) 97 01/04/17 21:00 Labs: CBC, BMP 01/05/17 07:30 01/05/17 07:30 Problem List - Problems (1) Acute appendicitis with appendiceal abscess Code(s): K35.3 - ACUTE APPENDICITIS WITH LOCALIZED PERITONITIS (2) Obesity Code(s): E66.9 - OBESITY, UNSPECIFIED Qualifiers: Obesity type: due to excess calories (3) Diarrhea Code(s): R19.7 - DIARRHEA, UNSPECIFIED Qualifiers: Diarrhea type: unspecified type Qualified Code(s): R19.7 - Diarrhea , unspecified Assessment/Plan Surgery: Patient is feeling better, tolerating liquids, will do abdominal CT scan tomorrow. Continue antibiotics.
[2017-01-06] MEDS: POTASSIUM CHLORIDE 10 MEQ in DEXTROSE 5%-0.45% SALINE 1,000 ML IVPB SCH ×2 (01:59→13:52)
[2017-01-06] MEDS: PIPERACILLIN/TAZOB 3.375 GM 50 ML IVPB SCH ×3 (02:00→18:31)
--- NOTE | 2017-01-06 09:33 | PN ---
Progress Note, Physician Chief Complaint: Feels better History of Present Illness: Admitted with appendicular abscess on IV antibiotics - Current Medication List Current Medications: Active Medications Amlodipine Besylate (Norvasc -) 5 mg PO DAILY [facility] Last Admin: 01/05/17 09:47 Dose: 5 mg Piperacillin Sod/Tazobactam Sod (Zosyn 3.375gm Ivpb (Pre-Docked)) 50 mls @ 100 mls/hr IVPB Q8H-IV [facility] PRN Reason: Protocol Last Admin: 01/06/17 02:00 Dose: 100 mls/hr Potassium Chloride 10 meq/ (Dextrose/Sodium Chloride) 1,005 mls @ 100 mls/hr IVPB Q10H [facility] Last Admin: 01/06/17 01:59 Dose: 100 mls/hr Metoprolol Tartrate (Lopressor -) 12.5 mg PO BID [facility] Last Admin: 01/05/17 21:59 Dose: 12.5 mg Ondansetron HCl (Zofran Injection) 4 mg IVPB Q6H PRN PRN Reason: NAUSEA - Objective Vital Signs: Vital Signs Temperature 98.6 F 01/06/17 06:00 Pulse Rate 78 01/06/17 06:00 Respiratory Rate 18 01/06/17 06:00 Blood Pressure 146/94 01/06/17 06:00 O2 Sat by Pulse Oximetry (%) 97 01/04/17 21:00 Constitutional: Yes: No Distress Eyes: Yes: WNL HENT: Yes: WNL Neck: Yes: WNL Cardiovascular: Yes: WNL Respiratory: Yes: WNL Gastrointestinal: Yes: Normal Bowel Sounds, Palpable Mass ...Rectal Exam: Yes: Deferred Genitourinary: Yes: WNL Breast(s): Yes: WNL Musculoskeletal: Yes: WNL Labs: CBC, BMP 01/05/17 07:30 01/05/17 07:30 Assessment/Plan Rpt CT abdomen
[2017-01-06] MEDS: METOPROLOL TARTRATE 25 MG TABLET (FP) PO SCH ×2 (10:25→22:25)
[2017-01-06] MEDS: amLODIPine BESYLATE 5 MG TABLET (FP) PO SCH (10:25)
--- NOTE | 2017-01-06 14:20 | PN ---
Progress Note, Physician - Current Medication List Current Medications: Active Medications Amlodipine Besylate (Norvasc -) 5 mg PO DAILY [facility] Last Admin: 01/06/17 10:25 Dose: 5 mg Piperacillin Sod/Tazobactam Sod (Zosyn 3.375gm Ivpb (Pre-Docked)) 50 mls @ 100 mls/hr IVPB Q8H-IV [facility] PRN Reason: Protocol Last Admin: 01/06/17 10:25 Dose: 100 mls/hr Potassium Chloride 10 meq/ (Dextrose/Sodium Chloride) 1,005 mls @ 100 mls/hr IVPB Q10H [facility] Last Admin: 01/06/17 13:52 Dose: 100 mls/hr Metoprolol Tartrate (Lopressor -) 12.5 mg PO BID [facility] Last Admin: 01/06/17 10:25 Dose: 12.5 mg Ondansetron HCl (Zofran Injection) 4 mg IVPB Q6H PRN PRN Reason: NAUSEA - Objective Vital Signs: Vital Signs Temperature 98.4 F 01/06/17 10:51 Pulse Rate 83 01/06/17 10:51 Respiratory Rate 18 01/06/17 10:51 Blood Pressure 156/95 01/06/17 10:51 O2 Sat by Pulse Oximetry (%) 97 01/04/17 21:00 Labs: CBC, BMP 01/05/17 07:30 01/05/17 07:30 Problem List - Problems (1) Acute appendicitis with appendiceal abscess Code(s): K35.3 - ACUTE APPENDICITIS WITH LOCALIZED PERITONITIS (2) Obesity Code(s): E66.9 - OBESITY, UNSPECIFIED Qualifiers: Obesity type: due to excess calories (3) Diarrhea Code(s): R19.7 - DIARRHEA, UNSPECIFIED Qualifiers: Diarrhea type: unspecified type Qualified Code(s): R19.7 - Diarrhea , unspecified Assessment/Plan Patient has no complaints. He is tolerating oral feeding. abdomen is soft, not tender. WBC is normal. CT scan done today, shows significant improvement in the inflammatory changes in the right lower quadrant. There is no intestinal obstruction , there is no abscess.. Plan: Progress diet, possible discharge home with PO antibiotics. Follow up in the office. Possible interval appendectomy. Patient is informed of the findings and plan of management.
--- NOTE | 2017-01-06 18:15 | PN ---
Progress Note, Physician History of Present Illness: doing well no pain diet advanced - Current Medication List Current Medications: Active Medications Amlodipine Besylate (Norvasc -) 5 mg PO DAILY [facility] Last Admin: 01/06/17 10:25 Dose: 5 mg Piperacillin Sod/Tazobactam Sod (Zosyn 3.375gm Ivpb (Pre-Docked)) 50 mls @ 100 mls/hr IVPB Q8H-IV [facility] PRN Reason: Protocol Last Admin: 01/06/17 10:25 Dose: 100 mls/hr Potassium Chloride 10 meq/ (Dextrose/Sodium Chloride) 1,005 mls @ 100 mls/hr IVPB Q10H [facility] Last Admin: 01/06/17 13:52 Dose: 100 mls/hr Metoprolol Tartrate (Lopressor -) 12.5 mg PO BID [facility] Last Admin: 01/06/17 10:25 Dose: 12.5 mg Ondansetron HCl (Zofran Injection) 4 mg IVPB Q6H PRN PRN Reason: NAUSEA - Objective Vital Signs: Vital Signs Temperature 98.4 F 01/06/17 15:10 Pulse Rate 77 01/06/17 15:10 Respiratory Rate 18 01/06/17 15:10 Blood Pressure 141/96 01/06/17 15:10 O2 Sat by Pulse Oximetry (%) 96 01/06/17 09:00 Constitutional: Yes: No Distress, Calm Cardiovascular: Yes: Regular Rate and Rhythm Respiratory: Yes: Regular, CTA Bilaterally Gastrointestinal: Yes: Normal Bowel Sounds, Soft Musculoskeletal: Yes: WNL Extremities: Yes: WNL Neurological: Yes: Alert, Oriented Psychiatric: Yes: Alert, Oriented Labs: CBC, BMP 01/05/17 07:30 01/05/17 07:30 Assessment/Plan Problem List - Problems (1) Acute appendicitis with appendiceal abscess Code(s): K35.3 - ACUTE APPENDICITIS WITH LOCALIZED PERITONITIS (2) Obesity Code(s): E66.9 - OBESITY, UNSPECIFIED Qualifiers: Obesity type: due to excess calories (3) Diarrhea Code(s): R19.7 - DIARRHEA, UNSPECIFIED Qualifiers: Diarrhea type: unspecified type Qualified Code(s): R19.7 - Diarrhea , unspecified d/w surgery plan noted from them plan continue abx continue to monitor ct scan seen official result awaited will switch to oral abx tomorrow
[2017-01-07] MEDS: POTASSIUM CHLORIDE 10 MEQ in DEXTROSE 5%-0.45% SALINE 1,000 ML IVPB SCH (00:41)
[2017-01-07] MEDS: PIPERACILLIN/TAZOB 3.375 GM 50 ML IVPB SCH ×2 (02:56→09:53)
[2017-01-07 08:21] VITALS: TEMP 97.7
--- NOTE | 2017-01-07 09:19 | DS ---
Physical Examination Vital Signs: Vital Signs Temperature 97.7 F 01/07/17 07:00 Pulse Rate 76 01/07/17 07:00 Respiratory Rate 20 01/07/17 07:00 Blood Pressure 144/94 01/07/17 07:00 O2 Sat by Pulse Oximetry (%) 97 01/06/17 21:00 Findings/Remarks: Admitted with appendicular abscess treated with IV antibiotics Improved ,may need appendectomy as out patient Constitutional: Yes: No Distress Eyes: Yes: WNL HENT: Yes: WNL Neck: Yes: WNL Cardiovascular: Yes: WNL Respiratory: Yes: WNL Gastrointestinal: Yes: Normal Bowel Sounds ...Rectal Exam: Yes: Deferred Renal/: Yes: WNL Breast(s): Yes: WNL Musculoskeletal: Yes: WNL Extremities: Yes: WNL Edema: No Neurological: Yes: Alert ...Motor Strength: WNL Psychiatric: Yes: WNL Labs: CBC, BMP 01/05/17 07:30 01/05/17 07:30 Discharge Summary Reason For Visit: ACUTE APPENDICITIS RUPTURE Current Active Problems Acute appendicitis with appendiceal abscess (Acute) Acute appendicitis with perforation and peritoneal abscess (Acute) Appendicitis with perforation (Acute) Diarrhea (Acute) HTN (hypertension) (Acute) Obesity (Acute) Condition: Stable - Instructions Referrals: Christiano Ayala MD [Primary Care Provider] - - Home Medications Comprehensive Discharge Medication List: Ambulatory Orders NK [No Known Home Medication] 01/02/17
[2017-01-07] MEDS: METOPROLOL TARTRATE 25 MG TABLET (FP) PO SCH (09:51)
[2017-01-07] MEDS: amLODIPine BESYLATE 5 MG TABLET (FP) PO SCH (09:52)
--- NOTE | 2017-01-07 10:00 | PN ---
Progress Note, Physician - Current Medication List Current Medications: Active Medications Amlodipine Besylate (Norvasc -) 5 mg PO DAILY [facility] Last Admin: 01/07/17 09:52 Dose: 5 mg Piperacillin Sod/Tazobactam Sod (Zosyn 3.375gm Ivpb (Pre-Docked)) 50 mls @ 100 mls/hr IVPB Q8H-IV [facility] PRN Reason: Protocol Last Admin: 01/07/17 09:53 Dose: 100 mls/hr Potassium Chloride 10 meq/ (Dextrose/Sodium Chloride) 1,005 mls @ 100 mls/hr IVPB Q10H [facility] Last Admin: 01/07/17 00:41 Dose: 100 mls/hr Metoprolol Tartrate (Lopressor -) 12.5 mg PO BID [facility] Last Admin: 01/07/17 09:51 Dose: 12.5 mg Ondansetron HCl (Zofran Injection) 4 mg IVPB Q6H PRN PRN Reason: NAUSEA - Objective Vital Signs: Vital Signs Temperature 97.7 F 01/07/17 07:00 Pulse Rate 76 01/07/17 07:00 Respiratory Rate 20 01/07/17 07:00 Blood Pressure 144/94 01/07/17 07:00 O2 Sat by Pulse Oximetry (%) 97 01/06/17 21:00 Labs: CBC, BMP 01/05/17 07:30 01/05/17 07:30 Problem List - Problems (1) Acute appendicitis with appendiceal abscess Code(s): K35.3 - ACUTE APPENDICITIS WITH LOCALIZED PERITONITIS (2) Obesity Code(s): E66.9 - OBESITY, UNSPECIFIED Qualifiers: Obesity type: due to excess calories (3) Diarrhea Code(s): R19.7 - DIARRHEA, UNSPECIFIED Qualifiers: Diarrhea type: unspecified type Qualified Code(s): R19.7 - Diarrhea , unspecified Assessment/Plan Surgery: patient is comfortable, has no abdominal pain. He is tolerating diet. Having bowel movements. He will be discharged with oral antibiotics, and will be followed in my office. Patient is given instructions and made aware of his condition.
[2017-01-07 12:59] VITALS: BP 144/90; PULSE 84
--- NOTE | 2017-01-07 16:05 | PN ---
Progress Note, Physician History of Present Illness: doing well no pain diet advanced - Objective Vital Signs: Vital Signs Temperature 97.7 F 01/07/17 07:00 Pulse Rate 84 01/07/17 09:00 Respiratory Rate 18 01/07/17 09:00 Blood Pressure 144/90 01/07/17 09:00 O2 Sat by Pulse Oximetry (%) 97 01/06/17 21:00 Constitutional: Yes: No Distress, Calm Cardiovascular: Yes: Regular Rate and Rhythm Respiratory: Yes: Regular, CTA Bilaterally Gastrointestinal: Yes: Normal Bowel Sounds, Soft Musculoskeletal: Yes: WNL Extremities: Yes: WNL Neurological: Yes: Alert, Oriented Psychiatric: Yes: Alert, Oriented Labs: CBC, BMP 01/05/17 07:30 01/05/17 07:30 Assessment/Plan Problem List - Problems (1) Acute appendicitis with appendiceal abscess Code(s): K35.3 - ACUTE APPENDICITIS WITH LOCALIZED PERITONITIS (2) Obesity Code(s): E66.9 - OBESITY, UNSPECIFIED Qualifiers: Obesity type: due to excess calories (3) Diarrhea Code(s): R19.7 - DIARRHEA, UNSPECIFIED Qualifiers: Diarrhea type: unspecified type Qualified Code(s): R19.7 - Diarrhea , unspecified d/w surgery plan noted from them plan augmentin orally for one more week follow up as needed
== END 2017-01-07 13:39 | disposition home or self-care (01) | DRG 373 ==
LOC: JER 12:31 → JERBED 18:07 → UNDOADMIN 18:24 → JERBED 18:24 → J5S 20:41
PROVIDERS: ADMIT Internal Medicine; ATTEND Internal Medicine
DX: K35.3 Acute appendicitis with localized peritonitis (principal); R19.7 Diarrhea, unspecified; E66.9 Obesity, unspecified; I10 Essential (primary) hypertension
CPT/HCPCS: 36415; 71010-TC; 74177-TC; 74178-TC; 80048; 80053; 82150; 83690; 85025; 85027; 93005; 93010; 99284-25; Q9967

== ENCOUNTER 2021-06-25 14:51 | Inpatient (IN) | payer OTHER ==
[2021-06-25] MEDS ORDERED: morphine CARPU-JECT 4 MG/1 ML DISP.SYRIN IVPUSH ONE (16:17)
[2021-06-25] MEDS ORDERED: VANCOMYCIN 1 GM in D5W (PRE-DOCKED) 1,000 MG/250 ML IVPB ONE (16:17)
[2021-06-25] MEDS ORDERED: SODIUM CHLORIDE 0.9% 500 ML INFUS.BAG IV ONE (16:17)
[2021-06-25] MEDS ORDERED: morphine SULFATE 4 MG/ML VIAL ONE (17:19)
[2021-06-25] MEDS ORDERED: VANCOMYCIN 1 GRAM (PRE-DOCKED) 1,000 MG/250 ML BAG IVPB ONE (17:20)
[2021-06-25] MEDS ORDERED: ACETAMINOPHEN 1000 MG/100 ML VIAL (NON FORMULARY) IVPB ONE (17:24)
[2021-06-25] MEDS ORDERED: ACETAMINOPHEN INJECTION 100 ML IVPB ONE (17:30)
[2021-06-25 17:38] LABS: HEMATOCRIT 33.1 % (35.4-49); HEMOGLOBIN 11.1 GM/dL (11.7-16.9); MCH 28.4 pg (25.7-33.7); MCHC 33.6 g/dl (32.0-35.9); MEAN CELL VOLUME 84.7 fl (80-96); MEAN PLT VOLUME 9.6 fl (7.5-11.1); PLATELET COUNT 159 10^3/uL (134-434); RBC 3.91 M/mm3 (4.00-5.60); RDW 14.8 % (11.9-15.9); WHITE BLOOD COUNT 13.4 K/mm3 (4.0-10.0)
[2021-06-25 18:06] LABS: CALCIUM 8.3 mg/dL (8.5-10.1)
[2021-06-25 18:07] LABS: ALBUMIN 2.7 g/dl (3.4-5.0); BLOOD UREA NITROGEN 11.4 mg/dL (7-18)
[2021-06-25 18:10] LABS: CREATININE 1.2 mg/dL (0.55-1.3)
[2021-06-25 18:11] LABS: TOT PROT 7.2 g/dl (6.4-8.2)
[2021-06-25] MEDS ORDERED: POTASSIUM CHLORIDE TABS 20 MEQ TABLET.ER (FP) PO ONE (18:17)
[2021-06-25 18:29] LABS: ANISOCYTOSIS 1+; MACROCYTOSIS 0; PLATELET ESTIMATE DECREASED
[2021-06-25] MEDS ORDERED: POTASSIUM CHLORIDE TABS 10 MEQ TABLET.ER (FP) ONE (18:46)
[2021-06-25] MEDS ORDERED: VANCOMYCIN PREMIX 1.75 GM 1,750 MG/350 ML PIGGYBACK IVPB SCH (22:00)
[2021-06-26] MEDS ORDERED: ACETAMINOPHEN 1000 MG/100 ML VIAL (NON FORMULARY) IVPB ONE (03:15)
[2021-06-26] MEDS ORDERED: VANCOMYCIN PREMIX 1.75 GM 1,750 MG/350 ML PIGGYBACK IVPB SCH (05:00)
[2021-06-26 05:39] VITALS: BMI 31.8
[2021-06-26] MEDS: CHOLECALCIFEROL (VIT D3) 5000 UNITS (125 MCG) CAP PO SCH (10:15)
[2021-06-26] MEDS: ENOXAPARIN NA (PORCINE) 40 MG/0.4 ML DISP.SYRIN SQ SCH (10:15)
[2021-06-26] MEDS: NIFEdipine E.R. 90 MG TABLET PO SCH (10:15)
[2021-06-26 10:32] LABS: BASO % 0.2 % (0-2.0); EOS % 0.3 % (0-4.5); HEMATOCRIT 33.9 % (35.4-49); HEMOGLOBIN 11.6 GM/dL (11.7-16.9); LYMPH % 10.6 % (8-40); MCH 29.4 pg (25.7-33.7); MCHC 34.2 g/dl (32.0-35.9); MEAN CELL VOLUME 85.9 fl (80-96); MEAN PLT VOLUME 9.8 fl (7.5-11.1); MONO % 11.4 % (3.8-10.2); NEUT % 77.5 % (42.8-82.8); PLATELET COUNT 190 10^3/uL (134-434); RBC 3.95 M/mm3 (4.00-5.60); RDW 15.1 % (11.9-15.9)
[2021-06-26 10:34] LABS: INR 1.29 (0.83-1.09); PROTHROMBIN TIME (PATIENT) 15.9 SEC (9.7-13.0)
[2021-06-26 10:37] LABS: ACTIVATED PTT 31.4 SECONDS (25.2-36.5)
[2021-06-26 10:50] LABS: CHLORIDE 106 mmol/L (98-107); SODIUM 142 mmol/L (136-145)
[2021-06-26 10:51] LABS: ANION GAP 5 MMOL/L (8-16); CALCIUM 8.4 mg/dL (8.5-10.1); CO2 31 mmol/L (21-32)
[2021-06-26 10:52] LABS: BLOOD UREA NITROGEN 10.8 mg/dL (7-18); GLUCOSE,RANDOM 100 mg/dL (74-106)
[2021-06-26 10:55] LABS: CREATININE 1.1 mg/dL (0.55-1.3)
[2021-06-26] MEDS ORDERED: PIPERACILLIN/TAZOB 4.5 GM 4.5 GM in DEXTROSE 5%-WATER 100 ML IVPB SCH ×2 (11:45→12:15)
[2021-06-26] MEDS ORDERED: DOXYCYCLINE HYCLATE 100 MG CAPSULE PO SCH (12:30)
[2021-06-26] MEDS ORDERED: DOXYCYCLINE HYCLATE 100 MG VIAL ONE ×2 (13:20→20:59)
[2021-06-26] MEDS ORDERED: DEXTROSE 5%-WATER - 50 ML IVPB ONE ×2 (13:20→17:11)
[2021-06-26] MEDS ORDERED: DEXTROSE 5%-WATER 100 ML IVPB ONE ×2 (13:20→20:59)
[2021-06-26] MEDS ORDERED: PIPERACILLIN/TAZOBACTAM 3.375 GM VIAL IVPB ONE ×2 (13:20→17:11)
[2021-06-26] MEDS ORDERED: PT OWN MED DRAWER 7, Y5N ONE (13:21)
[2021-06-26] MEDS: PIPERACILLIN/TAZOB 3.375 GM 3.375 GM in DEXTROSE 5%-WATER - 50 ML IVPB SCH ×2 (13:29→17:26)
[2021-06-26] MEDS: TRIAMTERENE AND HCTZ - 37.5 MG/25 MG CAPSULE PO SCH (13:37)
[2021-06-26] MEDS: ACETAMINOPHEN 325 MG TABLET (FP) PO PRN ×2 (14:16→21:04)
[2021-06-26] MEDS: DOXYCYCLINE INJECTION 100 MG in DEXTROSE 5%-WATER 100 ML IVPB SCH ×2 (14:19→21:03)
[2021-06-26 15:26] LABS: MAGNESIUM QNS mg/dL (1.8-2.4)
[2021-06-27] MEDS ORDERED: DEXTROSE 5%-WATER - 50 ML IVPB ONE ×4 (01:02→16:54)
[2021-06-27] MEDS ORDERED: PIPERACILLIN/TAZOBACTAM 3.375 GM VIAL IVPB ONE ×4 (01:02→16:54)
[2021-06-27] MEDS: PIPERACILLIN/TAZOB 3.375 GM 3.375 GM in DEXTROSE 5%-WATER - 50 ML IVPB SCH ×3 (01:08→17:02)
[2021-06-27] MEDS: ACETAMINOPHEN 325 MG TABLET (FP) PO PRN ×2 (08:11→17:02)
[2021-06-27 08:29] LABS: BASO % 0.3 % (0-2.0); EOS % 0.7 % (0-4.5); HEMATOCRIT 32.7 % (35.4-49); HEMOGLOBIN 11.1 GM/dL (11.7-16.9); LYMPH % 10.3 % (8-40); MCH 29.1 pg (25.7-33.7); MCHC 34.1 g/dl (32.0-35.9); MEAN CELL VOLUME 85.5 fl (80-96); MEAN PLT VOLUME 9.9 fl (7.5-11.1); MONO % 8.8 % (3.8-10.2); NEUT % 79.9 % (42.8-82.8); PLATELET COUNT 216 10^3/uL (134-434); RBC 3.82 M/mm3 (4.00-5.60); WHITE BLOOD COUNT 15.7 K/mm3 (4.0-10.0)
[2021-06-27 08:53] LABS: CALCIUM 8.5 mg/dL (8.5-10.1)
[2021-06-27 08:54] LABS: BLOOD UREA NITROGEN 13.9 mg/dL (7-18)
[2021-06-27 08:57] LABS: CREATININE 1.3 mg/dL (0.55-1.3)
[2021-06-27] MEDS ORDERED: DOXYCYCLINE HYCLATE 100 MG VIAL ONE ×2 (09:37→21:18)
[2021-06-27] MEDS ORDERED: DEXTROSE 5%-WATER 100 ML IVPB ONE ×2 (09:38→21:18)
[2021-06-27] MEDS ORDERED: PT OWN MED DRAWER 7, Y5N ONE (09:38)
[2021-06-27] MEDS: ENOXAPARIN NA (PORCINE) 40 MG/0.4 ML DISP.SYRIN SQ SCH (09:59)
[2021-06-27] MEDS: CHOLECALCIFEROL (VIT D3) 5000 UNITS (125 MCG) CAP PO SCH (10:00)
[2021-06-27] MEDS: NIFEdipine E.R. 90 MG TABLET PO SCH (10:01)
[2021-06-27] MEDS: TRIAMTERENE AND HCTZ - 37.5 MG/25 MG CAPSULE PO SCH (10:01)
[2021-06-27] MEDS ORDERED: POTASSIUM CHLORIDE 20 MEQ PREMIX IVPB 100 ML IVPB ONE (11:24)
[2021-06-27] MEDS ORDERED: POTASSIUM CHLORIDE TABS 20 MEQ TABLET.ER (FP) PO ONE (11:36)
[2021-06-27] MEDS: DOXYCYCLINE INJECTION 100 MG in DEXTROSE 5%-WATER 100 ML IVPB SCH ×2 (12:00→21:40)
[2021-06-27 13:11] LABS: MAGNESIUM 2.3 mg/dL (1.8-2.4)
[2021-06-27 13:15] LABS: PHOSPHOROUS 2.9 mg/dL (2.5-4.9)
[2021-06-27] MEDS: KCL 10 MEQ IVPB 10 MEQ/100 ML INFUS.BAG IVPB SCH ×2 (13:43→15:21)
[2021-06-28] MEDS ORDERED: PIPERACILLIN/TAZOBACTAM 3.375 GM VIAL IVPB ONE ×3 (01:12→16:39)
[2021-06-28] MEDS ORDERED: DEXTROSE 5%-WATER - 50 ML IVPB ONE ×3 (01:13→16:39)
[2021-06-28] MEDS: PIPERACILLIN/TAZOB 3.375 GM 3.375 GM in DEXTROSE 5%-WATER - 50 ML IVPB SCH ×3 (01:20→17:15)
[2021-06-28] MEDS ORDERED: DOXYCYCLINE HYCLATE 100 MG VIAL ONE ×2 (09:10→21:33)
[2021-06-28] MEDS ORDERED: DEXTROSE 5%-WATER 100 ML IVPB ONE ×2 (09:10→21:33)
[2021-06-28] MEDS ORDERED: PT OWN MED DRAWER 7, Y5N ONE (09:11)
[2021-06-28] MEDS: ACETAMINOPHEN 325 MG TABLET (FP) PO PRN (09:29)
[2021-06-28] MEDS: NIFEdipine E.R. 90 MG TABLET PO SCH (09:29)
[2021-06-28] MEDS: CHOLECALCIFEROL (VIT D3) 5000 UNITS (125 MCG) CAP PO SCH (09:29)
[2021-06-28 09:48] LABS: BASO % 0.2 % (0-2.0); HEMATOCRIT 33.9 % (35.4-49); HEMOGLOBIN 11.5 GM/dL (11.7-16.9); LYMPH % 13.1 % (8-40); MCH 29.2 pg (25.7-33.7); MCHC 33.9 g/dl (32.0-35.9); MEAN CELL VOLUME 86.2 fl (80-96); MEAN PLT VOLUME 9.7 fl (7.5-11.1); MONO % 5.9 % (3.8-10.2); NEUT % 79.8 % (42.8-82.8); PLATELET COUNT 255 10^3/uL (134-434); RBC 3.93 M/mm3 (4.00-5.60); WHITE BLOOD COUNT 13.8 K/mm3 (4.0-10.0)
[2021-06-28] MEDS: ENOXAPARIN NA (PORCINE) 40 MG/0.4 ML DISP.SYRIN SQ SCH (09:57)
[2021-06-28] MEDS: DOXYCYCLINE INJECTION 100 MG in DEXTROSE 5%-WATER 100 ML IVPB SCH ×2 (09:59→22:04)
[2021-06-28 10:13] LABS: CALCIUM 8.9 mg/dL (8.5-10.1)
[2021-06-28 10:14] LABS: ALBUMIN 2.2 g/dl (3.4-5.0); BLOOD UREA NITROGEN 16.8 mg/dL (7-18)
[2021-06-28 10:19] LABS: BILIRUBIN,TOTAL 0.8 mg/dL (0.2-1); TOT PROT 7.6 g/dl (6.4-8.2)
[2021-06-29] MEDS ORDERED: DEXTROSE 5%-WATER - 50 ML IVPB ONE ×3 (01:28→18:35)
[2021-06-29] MEDS ORDERED: PIPERACILLIN/TAZOBACTAM 3.375 GM VIAL IVPB ONE ×3 (01:28→18:35)
[2021-06-29] MEDS: PIPERACILLIN/TAZOB 3.375 GM 3.375 GM in DEXTROSE 5%-WATER - 50 ML IVPB SCH ×3 (02:03→18:51)
[2021-06-29 08:14] LABS: BASO % 0.5 % (0-2.0); EOS % 2.6 % (0-4.5); HEMATOCRIT 32.5 % (35.4-49); HEMOGLOBIN 11.1 GM/dL (11.7-16.9); MCH 29.4 pg (25.7-33.7); MCHC 34.2 g/dl (32.0-35.9); MEAN PLT VOLUME 9.3 fl (7.5-11.1); MONO % 8.3 % (3.8-10.2); NEUT % 69.6 % (42.8-82.8); PLATELET COUNT 275 10^3/uL (134-434); RBC 3.78 M/mm3 (4.00-5.60); RDW 15.2 % (11.9-15.9); WHITE BLOOD COUNT 8.9 K/mm3 (4.0-10.0)
[2021-06-29 08:49] LABS: BLOOD UREA NITROGEN 15.9 mg/dL (7-18); CALCIUM 8.8 mg/dL (8.5-10.1)
[2021-06-29 08:53] LABS: CREATININE 0.9 mg/dL (0.55-1.3)
[2021-06-29] MEDS ORDERED: PT OWN MED DRAWER 7, Y5N ONE (09:47)
[2021-06-29] MEDS ORDERED: DOXYCYCLINE HYCLATE 100 MG VIAL ONE ×2 (09:47→21:02)
[2021-06-29] MEDS ORDERED: DEXTROSE 5%-WATER 100 ML IVPB ONE ×2 (09:47→21:02)
[2021-06-29] MEDS: ENOXAPARIN NA (PORCINE) 40 MG/0.4 ML DISP.SYRIN SQ SCH (10:24)
[2021-06-29] MEDS: NIFEdipine E.R. 90 MG TABLET PO SCH (10:24)
[2021-06-29] MEDS: CHOLECALCIFEROL (VIT D3) 5000 UNITS (125 MCG) CAP PO SCH (10:24)
[2021-06-29] MEDS: DOXYCYCLINE INJECTION 100 MG in DEXTROSE 5%-WATER 100 ML IVPB SCH ×2 (10:24→21:15)
[2021-06-29] MEDS: ACETAMINOPHEN 325 MG TABLET (FP) PO PRN (14:13)
[2021-06-29 16:13] LABS: BABESIA MICROTI ANTIBODY IGG 1:40 (Neg:<1:10); BABESIA MICROTI ANTIBODY IGM <1:10 (Neg:<1:10)
[2021-06-30] MEDS ORDERED: PIPERACILLIN/TAZOBACTAM 3.375 GM VIAL IVPB ONE ×4 (00:55→17:17)
[2021-06-30] MEDS ORDERED: DEXTROSE 5%-WATER - 50 ML IVPB ONE ×3 (00:55→16:48)
[2021-06-30] MEDS: PIPERACILLIN/TAZOB 3.375 GM 3.375 GM in DEXTROSE 5%-WATER - 50 ML IVPB SCH ×3 (01:23→17:02)
[2021-06-30] MEDS ORDERED: DOXYCYCLINE HYCLATE 100 MG VIAL ONE ×2 (10:02→21:16)
[2021-06-30] MEDS ORDERED: PT OWN MED DRAWER 7, Y5N ONE (10:02)
[2021-06-30] MEDS ORDERED: DEXTROSE 5%-WATER 100 ML IVPB ONE ×2 (10:02→21:16)
[2021-06-30] MEDS: NIFEdipine E.R. 90 MG TABLET PO SCH (10:48)
[2021-06-30] MEDS: CHOLECALCIFEROL (VIT D3) 5000 UNITS (125 MCG) CAP PO SCH (10:48)
[2021-06-30] MEDS: DOXYCYCLINE INJECTION 100 MG in DEXTROSE 5%-WATER 100 ML IVPB SCH ×2 (10:49→21:34)
[2021-06-30] MEDS: ENOXAPARIN NA (PORCINE) 40 MG/0.4 ML DISP.SYRIN SQ SCH (10:49)
[2021-06-30] MEDS: ACETAMINOPHEN 325 MG TABLET (FP) PO PRN (10:57)
[2021-06-30 12:28] LABS: BASO % 0.4 % (0-2.0); EOS % 2.1 % (0-4.5); HEMATOCRIT 33.1 % (35.4-49); HEMOGLOBIN 11.2 GM/dL (11.7-16.9); LYMPH % 15.9 % (8-40); MCH 29.1 pg (25.7-33.7); MEAN CELL VOLUME 85.5 fl (80-96); MEAN PLT VOLUME 8.7 fl (7.5-11.1); MONO % 10.3 % (3.8-10.2); NEUT % 71.3 % (42.8-82.8); PLATELET COUNT 274 10^3/uL (134-434); RBC 3.87 M/mm3 (4.00-5.60); RDW 14.8 % (11.9-15.9); WHITE BLOOD COUNT 8.8 K/mm3 (4.0-10.0)
[2021-06-30 13:00] LABS: CALCIUM 8.4 mg/dL (8.5-10.1)
[2021-06-30 13:01] LABS: BLOOD UREA NITROGEN 16.6 mg/dL (7-18)
[2021-06-30 13:04] LABS: BILIRUBIN,TOTAL 0.5 mg/dL (0.2-1)
[2021-06-30 13:07] LABS: TOT PROT 7.9 g/dl (6.4-8.2)
[2021-07-01] MEDS ORDERED: DEXTROSE 5%-WATER - 50 ML IVPB ONE ×2 (01:15→09:04)
[2021-07-01] MEDS ORDERED: PIPERACILLIN/TAZOBACTAM 3.375 GM VIAL IVPB ONE ×2 (01:15→09:04)
[2021-07-01] MEDS: PIPERACILLIN/TAZOB 3.375 GM 3.375 GM in DEXTROSE 5%-WATER - 50 ML IVPB SCH ×2 (01:35→09:27)
[2021-07-01] MEDS ORDERED: DEXTROSE 5%-WATER 100 ML IVPB ONE (09:03)
[2021-07-01] MEDS ORDERED: DOXYCYCLINE HYCLATE 100 MG VIAL ONE (09:03)
[2021-07-01 09:22] LABS: BASO % 0.5 % (0-2.0); EOS % 4.3 % (0-4.5); HEMATOCRIT 34.4 % (35.4-49); HEMOGLOBIN 11.6 GM/dL (11.7-16.9); LYMPH % 22.2 % (8-40); MCHC 33.7 g/dl (32.0-35.9); MEAN PLT VOLUME 8.6 fl (7.5-11.1); MONO % 8.2 % (3.8-10.2); NEUT % 64.8 % (42.8-82.8); PLATELET COUNT 287 10^3/uL (134-434); RBC 4.01 M/mm3 (4.00-5.60); RDW 15.2 % (11.9-15.9); WHITE BLOOD COUNT 6.5 K/mm3 (4.0-10.0)
[2021-07-01] MEDS: CHOLECALCIFEROL (VIT D3) 5000 UNITS (125 MCG) CAP PO SCH (09:27)
[2021-07-01] MEDS: NIFEdipine E.R. 90 MG TABLET PO SCH (09:27)
[2021-07-01] MEDS: DOXYCYCLINE INJECTION 100 MG in DEXTROSE 5%-WATER 100 ML IVPB SCH (09:28)
[2021-07-01] MEDS: ENOXAPARIN NA (PORCINE) 40 MG/0.4 ML DISP.SYRIN SQ SCH (09:28)
[2021-07-01 10:19] LABS: BLOOD UREA NITROGEN 15.5 mg/dL (7-18)
[2021-07-01 10:23] LABS: CREATININE 0.9 mg/dL (0.55-1.3)
[2021-07-01] MEDS ORDERED: DOXYCYCLINE HYCLATE 100 MG CAPSULE PO SCH (18:00)
[2021-07-01 18:25] VITALS: BP 145/92; PULSE 85; TEMP 98.1
[2021-07-02] MEDS ORDERED: AMOX TR/POT CLAV 875MG/125MG TABLETS (FP) PO SCH (08:00)
== END 2021-07-01 19:46 | disposition home or self-care (01) | DRG 603 ==
LOC: JER 14:51 → JERBED 18:16 → J5S 06-26 02:14
PROVIDERS: ADMIT Internal Medicine; ATTEND Internal Medicine
DX: L03.116 Cellulitis of left lower limb (principal); E87.6 Hypokalemia; E66.9 Obesity, unspecified; Z68.31 Body mass index [BMI] 31.0-31.9, adult; R50.9 Fever, unspecified; R09.02 Hypoxemia
CPT/HCPCS: 36415; 71250-TC; 73700-TC-RT; 80048; 80053; 82550; 83605; 83735; 84100; 85025; 85610; 85730; 86140; 86753; 87040; 87207; 93005; 93010; 93306-TC; 93971-TC; 94010; 99285-25; C9803; J0131; J3370; U0003; U0005